=== PATIENT | female | born 1990 | race African-American/Black ===

== ENCOUNTER 2020-04-04 14:34 | Emergency (ER) | payer OTHER ==
[~2020-04-04] VITALS: Ht 170.2 cm; Wt 97.5 kg
[2020-04-04] MEDS ORDERED: ACYCLOVIR 800800 MG PO (16:07)
[2020-04-04] MEDS ORDERED: PREDNISONE 20 M20 MG PO (16:07)
[2020-04-04] MEDS ORDERED: AMOXICILLIN 50500 MG PO (16:07)
[2020-04-04 16:33] VITALS: BP 118/74
== END 2020-04-04 16:40 | disposition home or self-care (01) ==
LOC: ER 14:34
DX: G51.0 Bell's palsy (principal)